=== PATIENT | male | born 1990 | race Caucasian/White ===

== ENCOUNTER 2016-04-18 21:32 | Emergency (ER) | payer MEDICAID ==
[~2016-04-18] VITALS: Ht 170.2 cm; Wt 64.4 kg
[2016-04-18 22:30] LABS: Basophils # (auto) 0 uL; Basophils % (auto) 0.6 % (0.0-2.0); Eosinophils # (auto) 0.1 uL; Eosinophils % (auto) 1.7 % (0.0-7.0); Hematocrit 44.3 % (41.0-53.0); Hemoglobin 15.1 g/dL (13.5-17.5); Lymphocytes # (auto) 2.4 uL; Lymphocytes % (auto) 35.6 % (10.0-50.0); Mean Corpuscular Hemoglobin 32.3 pg (28.0-32.0); Mean Corpuscular Hgb Conc. 34.1 g/dL (32.0-36.0); Mean Corpuscular Volume 94.9 fL (80.0-100.0); Mean Platelet Volume 8.7 fL (7.4-10.4); Monocytes % (auto) 15.3 % (0.0-12.0); Neutrophils # (auto) 3.1 uL; Neutrophils % (auto) 46.8 % (37.0-80.0); Platelet Count (auto) 302 10^3/uL (140-450); Red Cell Distribution Width 12.8 % (11.6-16.0); White Blood Cell 6.7 10^3/uL (4.4-10.8)
[2016-04-18 23:02] LABS: Albumin 3.9 g/dL (3.4-5.0); Alkaline Phosphatase 59 U/L (45-117); Anion Gap 8 (5-15); Aspartate Aminotransferase 13 U/L (15-37); BUN/Creatinine Ratio 12.6; Bilirubin, Total 0.3 mg/dL (0.2-1.0); Blood Urea Nitrogen 13 mg/dL (7-18); Calcium 8.3 mg/dL (8.5-10.1); Carbon Dioxide 27 mmol/L (21-32); Chloride 104 mmol/L (98-107); GFR African American 111 mL/min; GFR Non-African American 92 mL/min; Glucose 101 mg/dL (74-106); Magnesium 2.5 mg/dL (1.6-2.6); Potassium 3.6 mmol/L (3.5-5.1); Sodium 139 mmol/L (136-145); Total Protein 7.4 g/dL (6.4-8.2)
[2016-04-19 03:55] VITALS: BP 137/76
[2016-04-19] MEDS ORDERED: HYDROmorphone HCL 2 MG/ML VL IV ONE (04:15)
[2016-04-19] MEDS ORDERED: ONDANSETRON HCL 4 MG/2 ML VIAL IV ONE (04:15)
[2016-04-19] MEDS ORDERED: ALUM & MAG HYDROX-SIMETH LIQ(MAALOX) 30 ML PO ONE (04:15)
[2016-04-19 04:25] LABS: Amylase 34 U/L (25-115)
[2016-04-19 04:26] LABS: Urine RBC None Seen /hpf (0 - 3)
[2016-04-19 04:39] LABS: Urine Bilirubin Negative (Negative); Urine Blood Negative /uL (Negative); Urine Color Yellow (Yellow); Urine Glucose Normal (Normal); Urine Ketone Negative (Negative); Urine Mucus FEW (None Seen); Urine Nitrite Negative (Negative); Urine Squamous Epithelial Cell FEW /hpf (<5); Urine Urobilinogen Normal (Negative)
[2016-04-19] MEDS ORDERED: LORazepam 2MG/ML-1ML VIAL IV ONE (05:30)
== END 2016-04-19 06:48 | disposition home or self-care (01) ==
LOC: ER 21:38
DX: R10.13 Epigastric pain (principal); F19.10 Other psychoactive substance abuse, uncomplicated
CPT/HCPCS: 36415; 74176; 80053; 81001; 82150; 83690; 83735; 84484; 85025; 93005; 96374; 96375; 99285; G0434; J2060; J2405

== ENCOUNTER 2016-12-26 19:44 | Emergency (ER) | payer MEDICAID ==
[~2016-12-26] VITALS: Ht 170.2 cm; Wt 61.2 kg
[2016-12-26 20:41] LABS: Urine WBC None Seen /hpf (0 - 3)
[2016-12-26 21:19] LABS: Urine Bacteria NONE SEEN /hpf (None Seen); Urine Blood Negative /uL (Negative); Urine Mucus FEW (None Seen); Urine Specific Gravity 1.019 (1.001-1.035)
[2016-12-26 23:01] LABS: Basophils # (auto) 0.1 uL; Basophils % (auto) 0.9 % (0.0-2.0); Eosinophils # (auto) 0.1 uL; Eosinophils % (auto) 1.6 % (0.0-7.0); Hematocrit 44.8 % (41.0-53.0); Lymphocytes % (auto) 25.6 % (10.0-50.0); Mean Corpuscular Hgb Conc. 33.5 g/dL (32.0-36.0); Mean Corpuscular Volume 95.6 fL (80.0-100.0); Monocytes # (auto) 0.6 uL; Monocytes % (auto) 7.1 % (0.0-12.0); Neutrophils # (auto) 5.1 uL; Neutrophils % (auto) 64.8 % (37.0-80.0); Platelet Count (auto) 245 10^3/uL (140-450); Red Blood Cells 4.69 10^6/uL (4.5-5.90); Red Cell Distribution Width 13.5 % (11.8-14.3); White Blood Cell 7.9 10^3/uL (4.4-10.8)
[2016-12-26 23:21] LABS: Albumin 4.4 g/dL (3.4-5.0); BUN/Creatinine Ratio 14.6; Bilirubin, Total 0.6 mg/dL (0.2-1.0); Potassium 3.6 mmol/L (3.5-5.1); Total Protein 7.8 g/dL (6.4-8.2)
[2016-12-26] MEDS ORDERED: FAMOTIDINE (10MG/ML) 2ML VL IV ONE (23:30)
[2016-12-26] MEDS ORDERED: SODIUM CHLORIDE 0.9% 1,000 ML IV ONE (23:30)
[2016-12-27 00:53] LABS: Alcohol, Urine < 3.0 mg/dL (0-5); Amphetamine Screen, Urine NEGATIVE (NEGATIVE); Barbiturate Scree,Urine NEGATIVE (NEGATIVE); Benzodiazephine Screen, Urine NEGATIVE (NEGATIVE); Cannabinoid Screen, Urine POSITIVE (NEGATIVE); Cocaine Screen, Urine NEGATIVE (NEGATIVE); Opiate Scree,Urine NEGATIVE (NEGATIVE); Phencyclidine Screen, Urine NEGATIVE (NEGATIVE)
[2016-12-27 02:01] VITALS: BP 116/59
== END 2016-12-27 02:02 | disposition home or self-care (01) ==
LOC: ER 19:47
DX: K29.00 Acute gastritis without bleeding (principal); F11.20 Opioid dependence, uncomplicated; F12.10 Cannabis abuse, uncomplicated; F15.10 Other stimulant abuse, uncomplicated
CPT/HCPCS: 36415; 74176; 80053; 80307; 81001; 83690; 85025; 96361; 96374; 99285; J3490; J7030

== ENCOUNTER 2018-01-24 14:48 | Emergency (ER) | payer MEDICAID ==
[~2018-01-24] VITALS: Ht 170.2 cm; Wt 63.5 kg
[2018-01-24 15:09] VITALS: BP 129/67
== END 2018-01-24 16:25 | disposition home or self-care (01) ==
LOC: ER 14:51
DX: L03.113 Cellulitis of right upper limb (principal); F12.10 Cannabis abuse, uncomplicated; F15.10 Other stimulant abuse, uncomplicated; F14.10 Cocaine abuse, uncomplicated; F17.210 Nicotine dependence, cigarettes, uncomplicated; W26.8XXA Contact with other sharp object(s), not elsewhere classified, initial encounter; Y93.39 Activity, other involving climbing, rappelling and jumping off; Y92.89 Other specified places as the place of occurrence of the external cause; Y99.8 Other external cause status
CPT/HCPCS: 73130

== ENCOUNTER 2022-03-16 19:49 | Emergency (ER) | payer MEDICAID ==
[~2022-03-16] VITALS: Ht 170.2 cm; Wt 61.4 kg
[2022-03-16 21:37] LABS: Basophils # (auto) 0 10 ^3/uL (0-0.2); Basophils % (auto) 0.7 % (0.0-2.0); Eosinophils # (auto) 0.1 10 ^3/uL (0-0.8); Eosinophils % (auto) 2.1 % (0.0-7.0); Hematocrit 44.4 % (41.0-53.0); Hemoglobin 14.6 g/dL (13.5-17.5); Lymphocytes # (auto) 1.4 10 ^3/uL (0.4-5.4); Lymphocytes % (auto) 26.9 % (10.0-50.0); Mean Corpuscular Hemoglobin 32.3 pg (28.0-32.0); Mean Corpuscular Hgb Conc. 32.9 g/dL (32.0-36.0); Mean Corpuscular Volume 98.1 fL (80.0-100.0); Monocytes # (auto) 0.4 10 ^3/uL (0-1.3); Monocytes % (auto) 7.4 % (0.0-12.0); Neutrophils # (auto) 3.3 10 ^3/uL (1.6-8.6); Neutrophils % (auto) 62.9 % (37.0-80.0); Red Blood Cells 4.52 10^6/uL (4.5-5.90); Red Cell Distribution Width 13.2 % (11.8-14.3); White Blood Cell 5.2 10^3/uL (4.4-10.8)
[2022-03-16 21:47] LABS: BUN/Creatinine Ratio 11.4; Calcium 8.5 mg/dL (8.5-10.1); Potassium 4.2 mmol/L (3.5-5.1)
[2022-03-16 21:50] LABS: Bilirubin, Total 0.2 mg/dL (0.2-1.0); Total Protein 7.1 g/dL (6.4-8.2)
[2022-03-16 21:54] LABS: INR 0.97 (0.9-1.15)
[2022-03-17] MEDS ORDERED: SENN1TAB14 PO (00:37)
[2022-03-17] MEDS ORDERED: FAMO20TA10 PO (00:37)
[2022-03-17 01:56] VITALS: BP 117/72
== END 2022-03-17 01:35 | disposition admitted as inpatient to this hospital (09) ==
LOC: ER 19:49
DX: K62.5 Hemorrhage of anus and rectum (principal); F12.90 Cannabis use, unspecified, uncomplicated
CPT/HCPCS: 36415; 71045; 74176; 80053; 83690; 84484; 85025; 85610